=== PATIENT | male | born 1985 | race Caucasian/White ===

== ENCOUNTER 2017-05-21 09:56 | Emergency (ER) | payer MEDICAID ==
[~2017-05-21] VITALS: Ht 157.5 cm; Wt 75.0 kg
[2017-05-21] MEDS ORDERED: SODIUM CHLORIDE 0.9% 1,000 ML IV ONE (10:16)
[2017-05-21 10:32] LABS: BASOPHILS % 0.8 % (0.0-2.0); EOSINOPHILS % 6.7 % (0.0-5.0); HEMOGLOBIN. 16.7 g/dL (14.0-18.0); LYMPHOCYTES % 23.5 % (20.0-50.0); MEAN CORPUSCULAR HEMOGLOBIN 30.6 pg (28.0-32.0); MEAN CORPUSCULAR VOLUME 90.3 fL (80.0-94.0); MEAN PLATELET VOLUME 9.6 fl (7.4-10.4); MONOCYTES % 7.2 % (2.0-8.0); NEUTROPHILS % 61.8 % (40.0-76.0); PLATELET 219 x1000/uL (130-400); RED BLOOD CELL COUNT 5.43 mill/uL (4.7-6.1); RED CELL DISTRIBUTION WIDTH 13.4 % (11.6-14.6)
[2017-05-21 10:42] LABS: PARTIAL THROMBOPLASTIN TIME 27.5 sec (23.4-31.0); PROTHROMBIN TIME 10.2 sec (9.4-11.6)
[2017-05-21 10:45] LABS: CARBON DIOXIDE 30 mEq/L (21-32); CHLORIDE 104 mEq/L (98-107)
[2017-05-21 10:50] LABS: CREATINE KINASE 123 IU/L (39-308); TROPONIN I < 0.02 ng/mL (0.00-0.04)
[2017-05-21 10:51] LABS: CREATINE KINASE MB FRACTION 0.9 ng/mL (0.5-3.6)
[2017-05-21 13:46] LABS: *AMPHETAMINES SCREEN URINE NEGATIVE (NEGATIVE); *BARBITURATES SCREEN URINE NEGATIVE (NEGATIVE); *BENZODIAZEPINES SCREEN URINE NEGATIVE (NEGATIVE); *COCAINE SCREEN URINE NEGATIVE (NEGATIVE); CANNABINOID URINE SCREEN NEGATIVE (NEGATIVE); METHADONE URINE SCREEN NEGATIVE (NEGATIVE); OPIATES URINE SCREEN NEGATIVE (NEGATIVE); PHENCYCLIDINE URINE SCREEN NEGATIVE (NEGATIVE)
[2017-05-21 14:09] VITALS: BP 131/85
== END 2017-05-21 14:52 | disposition home or self-care (01) ==
LOC: ER 09:56
DX: R07.89 Other chest pain (principal); I10 Essential (primary) hypertension; J45.909 Unspecified asthma, uncomplicated
CPT/HCPCS: 36415; 71010; 80048; 80305; 82550; 82553; 83880; 84484; 85025; 85610; 85730; 93005; 96360; 96361; 99285; Z7610; J7030

== ENCOUNTER 2017-06-12 10:45 | Inpatient (IN) | payer MEDICAID, OTHER ==
[~2017-06-12] VITALS: Ht 157.5 cm; Wt 75.3 kg
[2017-06-12] MEDS ORDERED: ALBU05 IH (10:51)
[2017-06-12] MEDS ORDERED: ALBU6.7H IH (10:51)
[2017-06-12] MEDS ORDERED: PREDNISONE 20MG TABLET PO STA (11:03)
[2017-06-12] MEDS ORDERED: METHYLPREDNISOLONE SOD SUCC 125 MG/2 ML VIAL IV STA (11:03)
[2017-06-12] MEDS ORDERED: IPRATROPIUM/ALBUTEROL 0.5-3(2.5)MG/3ML NEB HHN ONE ×2 (11:15→12:00)
[2017-06-12 11:31] LABS: BASOPHILS % 0.5 % (0.0-2.0); EOSINOPHILS % 3.6 % (0.0-5.0); HEMATOCRIT. 51.1 % (42.0-52.0); HEMOGLOBIN. 17.2 g/dL (14.0-18.0); LYMPHOCYTES % 12.8 % (20.0-50.0); MEAN CORPUSCULAR HEMOGLOBIN 30.3 pg (28.0-32.0); MEAN PLATELET VOLUME 9.9 fl (7.4-10.4); MONOCYTES % 5.7 % (2.0-8.0); NEUTROPHILS % 77.4 % (40.0-76.0); PLATELET 233 x1000/uL (130-400); RED BLOOD CELL COUNT 5.68 mill/uL (4.7-6.1); RED CELL DISTRIBUTION WIDTH 13.3 % (11.6-14.6)
[2017-06-12 11:35] LABS: CHLORIDE 103 mEq/L (98-107)
[2017-06-12 11:36] LABS: PROTHROMBIN TIME 10.3 sec (9.4-11.6)
[2017-06-12 11:44] LABS: CARBON DIOXIDE 28 mEq/L (21-32)
[2017-06-12] MEDS ORDERED: ALBUTEROL (0.083%) 2.5MG/3ML NEB HHN STA (12:43)
[2017-06-12] MEDS ORDERED: MAGNESIUM 2 G PREMIX 50 ML IV ONE (12:45)
[2017-06-12] MEDS ORDERED: SODIUM CHLORIDE 0.9% 1,000 ML IV ONE (13:39)
[2017-06-12] MEDS ORDERED: ACETAMINOPHEN 325MG TABLET PO PRN (15:15)
[2017-06-12] MEDS ORDERED: KETOROLAC 15MG/ML VIAL IV PRN (15:15)
[2017-06-12] MEDS ORDERED: DIPHENHYDRAMINE 50MG/ML VIAL IV PRN (15:15)
[2017-06-12] MEDS ORDERED: GUAIFENESIN 200MG/10ML SUGAR FREE UDC PO PRN (15:15)
[2017-06-12] MEDS ORDERED: LORAZEPAM 2MG/ML CPJ IV PRN (15:15)
[2017-06-12] MEDS ORDERED: ONDANSETRON HCL 4MG/2ML VIAL IV PRN (15:15)
[2017-06-12] MEDS ORDERED: NA PHOS,M-B/NA PHOS,DI-BA ENEMA 118ML PR PRN (15:15)
[2017-06-12] MEDS ORDERED: CLONIDINE 0.1MG TABLET PO PRN (15:15)
[2017-06-12] MEDS ORDERED: MAGNESIUM/ALUMINUM HYDROXIDE/SIMETHICONE 30ML UDC PO PRN (15:15)
[2017-06-12] MEDS ORDERED: ZOLPIDEM TARTRATE 5MG TABLET PO PRN (15:15)
[2017-06-12] MEDS ORDERED: DOCUSATE SODIUM 100MG CAPSULE PO PRN (15:15)
[2017-06-12] MEDS ORDERED: IPRATROPIUM/ALBUTEROL 0.5-3(2.5)MG/3ML NEB INH PRN (15:15)
[2017-06-12 16:51] VITALS: BP 114/53
[2017-06-12] MEDS: GUAIFENESIN/DM 600MG/30MG ER TAB 12HR PO SCH (17:14)
[2017-06-12] MEDS: METHYLPREDNISOLONE SOD SUCC 125 MG/2 ML VIAL IV SCH ×2 (17:14→23:19)
[2017-06-12 20:00] VITALS: BP 125/65
[2017-06-12] MEDS: IPRATROPIUM/ALBUTEROL 0.5-3(2.5)MG/3ML NEB HHN SCH (20:07)
[2017-06-12] MEDS: FAMOTIDINE 20MG/2ML VIAL IV SCH (20:22)
[2017-06-12 23:58] VITALS: BP 122/58
[2017-06-13 04:00] VITALS: BP 107/56
[2017-06-13] MEDS: IPRATROPIUM/ALBUTEROL 0.5-3(2.5)MG/3ML NEB HHN SCH ×3 (04:01→09:38)
[2017-06-13] MEDS: METHYLPREDNISOLONE SOD SUCC 125 MG/2 ML VIAL IV SCH (05:46)
[2017-06-13 08:00] VITALS: BP 131/67
[2017-06-13] MEDS: GUAIFENESIN/DM 600MG/30MG ER TAB 12HR PO SCH (08:40)
[2017-06-13] MEDS: FAMOTIDINE 20MG/2ML VIAL IV SCH (08:40)
[2017-06-13 11:51] VITALS: BP 122/61
== END 2017-06-13 12:35 | disposition home or self-care (01) | DRG 141 ==
LOC: ER 12:31 → 8WST 13:59 → ENRESERV 16:00
PROVIDERS: ADMIT Internal Medicine; ATTEND Internal Medicine
DX: J45.901 Unspecified asthma with (acute) exacerbation (principal); F17.210 Nicotine dependence, cigarettes, uncomplicated; Z79.899 Other long term (current) drug therapy
CPT/HCPCS: 36415; 71010; 80053; 83036; 85025; 85610; 93005; 94640; 96365; 96366; 96375; 99285; J2930; J3475; J3490; J7030; J7611; J7620

== ENCOUNTER 2017-06-23 13:13 | Emergency (ER) | payer MEDICAID ==
[~2017-06-23] VITALS: Ht 157.5 cm; Wt 71.0 kg
[~2017-06-23 13:13] MED LIST: ALBU05 IH; ALBU6.7H IH
[2017-06-23 13:39] VITALS: BP 157/102
== END 2017-06-23 19:16 | disposition left against medical advice (07) ==
LOC: ER 13:13
DX: Z04.71 Encounter for examination and observation following alleged adult physical abuse (principal); Z53.21 Procedure and treatment not carried out due to patient leaving prior to being seen by health care provider

== ENCOUNTER 2018-06-24 18:25 | Emergency (ER) | payer MEDICAID ==
[~2018-06-24] VITALS: Ht 157.5 cm; Wt 78.0 kg
[2018-06-25] MEDS ORDERED: PREDNISONE 20MG TABLET PO STA (00:29)
[2018-06-25] MEDS ORDERED: IPRATROPIUM/ALBUTEROL 0.5-3(2.5)MG/3ML NEB HHN ONE (00:30)
[2018-06-25] MEDS ORDERED: LEVOFLOXACIN 500MG TABLET PO ONE (00:30)
[2018-06-25 01:30] VITALS: BP 133/69
== END 2018-06-25 01:35 | disposition home or self-care (01) ==
LOC: ER 21:04
DX: J45.909 Unspecified asthma, uncomplicated (principal); R03.0 Elevated blood-pressure reading, without diagnosis of hypertension
CPT/HCPCS: 71045; 94640; 99284; J7512; J7620

== ENCOUNTER 2018-11-16 04:06 | Emergency (ER) | payer MEDICAID ==
[~2018-11-16] VITALS: Ht 157.5 cm; Wt 79.0 kg
[2018-11-16] MEDS ORDERED: ALBUTEROL (0.083%) 2.5MG/3ML NEB HHN STA (04:46)
[2018-11-16] MEDS ORDERED: PREDNISONE 20MG TABLET PO STA (04:46)
[2018-11-16] MEDS ORDERED: ACETAMINOPHEN 325MG TABLET PO STA (04:46)
[2018-11-16 06:01] VITALS: BP 122/77
== END 2018-11-16 06:10 | disposition home or self-care (01) ==
LOC: ER 05:06
DX: J45.901 Unspecified asthma with (acute) exacerbation (principal)
CPT/HCPCS: 71045; 93005; 94640; 99283; J7512; J7611; Z7610

== ENCOUNTER 2019-04-01 07:31 | Emergency (ER) | payer MEDICAID ==
[~2019-04-01] VITALS: Ht 157.5 cm; Wt 78.0 kg
[2019-04-01] MEDS ORDERED: ALBUTEROL (0.083%) 2.5MG/3ML NEB HHN STA (07:54)
[2019-04-01] MEDS ORDERED: PREDNISONE 20MG TABLET PO STA (07:54)
[2019-04-01 09:43] VITALS: BP 129/74
== END 2019-04-01 09:46 | disposition home or self-care (01) ==
LOC: ER 07:31
DX: J45.901 Unspecified asthma with (acute) exacerbation (principal); F17.210 Nicotine dependence, cigarettes, uncomplicated
CPT/HCPCS: 71045; 94640; 99283; J7512; J7611; 94002

== ENCOUNTER 2019-07-12 11:15 | Emergency (ER) | payer MEDICAID ==
[~2019-07-12] VITALS: Ht 165.1 cm; Wt 79.0 kg
[2019-07-12] MEDS ORDERED: IPRATROPIUM BROMIDE (0.02%) 0.5MG/2.5ML NEB HHN STA (11:45)
[2019-07-12] MEDS ORDERED: ALBUTEROL (0.083%) 2.5MG/3ML NEB HHN STA (11:45)
[2019-07-12 13:48] VITALS: BP 122/42
== END 2019-07-12 13:52 | disposition home or self-care (01) ==
LOC: ER 11:24
DX: R06.02 Shortness of breath (principal); R07.9 Chest pain, unspecified; Z79.899 Other long term (current) drug therapy
CPT/HCPCS: 71045; 93005; 94640; 99283; J7611; Z7610

== ENCOUNTER 2020-12-12 09:11 | Emergency (ER) | payer MEDICAID ==
[~2020-12-12] VITALS: Ht 157.5 cm; Wt 90.0 kg
[~2020-12-12 09:11] MED LIST changes: -ALBU6.7H IH; +ALBU6.7H11 IH
[2020-12-12] MEDS: FAMOTIDINE 20MG/2ML VIAL IV ONE (11:14)
[2020-12-12] MEDS: MAGNESIUM/ALUMINUM HYDROXIDE/SIMETHICONE 30ML UDC PO STA (11:14)
[2020-12-12] MEDS: VISCOUS LIDOCAINE 2% 15 ML UDC PO STA (11:14)
[2020-12-12 11:43] LABS: BASOPHILS % 0.9 % (0.0-2.0); EOSINOPHILS % 1.6 % (0.0-5.0); HEMATOCRIT. 49.8 % (42.0-52.0); HEMOGLOBIN. 16.3 g/dL (14.0-18.0); LYMPHOCYTES % 19.4 % (20.0-50.0); MEAN CORPUSCULAR HEMOGLOBIN 30.3 pg (28.0-32.0); MEAN CORPUSCULAR VOLUME 92.8 fL (80.0-94.0); MEAN PLATELET VOLUME 9.7 fl (7.4-10.4); NEUTROPHILS % 71.1 % (40.0-76.0); PLATELET 225 x1000/uL (130-400); RED BLOOD CELL COUNT 5.37 mill/uL (4.7-6.1); RED CELL DISTRIBUTION WIDTH 13.7 % (11.6-14.6)
[2020-12-12 12:21] LABS: CHLORIDE 106 mEq/L (98-107)
[2020-12-12] MEDS ORDERED: FAMO-262 PO (13:27)
[2020-12-12] MEDS ORDERED: MAG-55 MT (13:27)
[2020-12-12 13:45] VITALS: BP 122/54
== END 2020-12-12 13:47 | disposition home or self-care (01) ==
LOC: ER 09:11
DX: K29.00 Acute gastritis without bleeding (principal); K70.9 Alcoholic liver disease, unspecified; F10.20 Alcohol dependence, uncomplicated; Y90.9 Presence of alcohol in blood, level not specified; J98.11 Atelectasis; J45.909 Unspecified asthma, uncomplicated; Z79.51 Long term (current) use of inhaled steroids; Z79.899 Other long term (current) drug therapy
CPT/HCPCS: 36415; 71045; 80053; 83690; 83880; 84443; 84484; 85025; 93005; 96374; 99285; J3490

== ENCOUNTER 2021-08-07 06:28 | Emergency (ER) | payer MEDICAID ==
[~2021-08-07] VITALS: Ht 157.5 cm; Wt 89.5 kg
[~2021-08-07 06:28] MED LIST changes: -ALBU6.7H11 IH; +ALBU6.7H15 IH; +FAMO-262 PO; +MAG-55 MT
[2021-08-07 07:18] VITALS: BP 137/90
[2021-08-07] MEDS ORDERED: PREDNISONE 20MG TABLET PO STA (07:24)
[2021-08-07] MEDS ORDERED: IPRATROPIUM BROMIDE (0.02%) 0.5MG/2.5ML NEB HHN STA (07:24)
[2021-08-07] MEDS ORDERED: ALBUTEROL (0.083%) 2.5MG/3ML NEB HHN STA (07:24)
[2021-08-07] MEDS ORDERED: P50 PO (08:49)
[2021-08-07] MEDS ORDERED: ALBU6.7H9 INH (08:49)
== END 2021-08-07 09:30 | disposition home or self-care (01) ==
LOC: ER 07:05
DX: J45.901 Unspecified asthma with (acute) exacerbation (principal)
CPT/HCPCS: 94640; 99283; J7512; Z7610

== ENCOUNTER 2021-11-14 11:09 | Emergency (ER) | payer MEDICAID ==
[~2021-11-14] VITALS: Ht 157.5 cm; Wt 89.0 kg
[~2021-11-14 11:09] MED LIST changes: +ALBU6.7H9 INH; +P50 PO
[2021-11-14] MEDS ORDERED: PREDNISONE 20MG TABLET PO ONE (11:45)
[2021-11-14] MEDS ORDERED: ALBUTEROL (0.083%) 2.5MG/3ML NEB HHN ONE (11:45)
[2021-11-14] MEDS ORDERED: P20 PO (11:46)
[2021-11-14] MEDS ORDERED: ALBU18HF2 IH (12:36)
[2021-11-14 12:57] VITALS: BP 137/64
== END 2021-11-14 12:58 | disposition home or self-care (01) ==
LOC: ER 11:09
DX: J45.901 Unspecified asthma with (acute) exacerbation (principal)
CPT/HCPCS: 94640; 99283; J7512; Z7610

== ENCOUNTER 2022-07-16 11:36 | Emergency (ER) | payer BC, MEDICAID ==
[~2022-07-16] VITALS: Ht 157.5 cm; Wt 81.0 kg
[~2022-07-16 11:36] MED LIST changes: +ALBU18HF2 IH; +ALBU6.7H3 INH; -ALBU6.7H9 INH; +P20 PO
[2022-07-16 12:03] VITALS: BP 146/83
[2022-07-16] MEDS ORDERED: IBUP-2029 MT (12:45)
[2022-07-16] MEDS ORDERED: POLY10DR LEFTEYE (12:45)
== END 2022-07-16 12:56 | disposition home or self-care (01) ==
LOC: ER 11:36
DX: H57.12 Ocular pain, left eye (principal); H57.89 Other specified disorders of eye and adnexa; J45.909 Unspecified asthma, uncomplicated; Z79.51 Long term (current) use of inhaled steroids
CPT/HCPCS: 99283

== ENCOUNTER 2022-07-23 08:32 | Emergency (ER) | payer BC, MEDICAID ==
[~2022-07-23] VITALS: Ht 167.6 cm; Wt 101.0 kg
[~2022-07-23 08:32] MED LIST changes: +IBUP-2029 MT; +POLY10DR LEFTEYE
[2022-07-23] MEDS ORDERED: IPRATROPIUM BROMIDE (0.02%) 0.5MG/2.5ML NEB HHN STA (08:50)
[2022-07-23] MEDS ORDERED: MAGNESIUM 2 G PREMIX 50 ML IV STA (08:50)
[2022-07-23] MEDS ORDERED: ALBUTEROL (0.083%) 2.5MG/3ML NEB HHN STA (08:50)
[2022-07-23] MEDS ORDERED: METHYLPREDNISOLONE SOD SUCC 125 MG/2 ML VIAL IV STA (08:50)
[2022-07-23] MEDS ORDERED: ALBU6.7H3 INH ×2 (11:13)
[2022-07-23] MEDS ORDERED: P50 PO (11:13)
[2022-07-23] MEDS ORDERED: ALBU05 NEB (11:14)
[2022-07-23 11:35] VITALS: BP 136/87
== END 2022-07-23 12:14 | disposition home or self-care (01) ==
LOC: ER 08:32
DX: J45.901 Unspecified asthma with (acute) exacerbation (principal)
CPT/HCPCS: 71045; 94644; 96365; 96375; 99285; J2930; J3475; Z7610; 94640